=== PATIENT | female | born 1945 | race Caucasian/White ===

== ENCOUNTER 2022-05-04 08:13 | Outpatient (CLI) | payer MEDICARE, BC ==
[2022-05-04] MEDS ORDERED: Iopamidol 370 76% 150 ML VIAL FS ONE (13:26)
== END 2022-05-04 08:14 | disposition home or self-care (01) ==
LOC: CSHCT 08:13
PROVIDERS: ATTEND Thoracic Surgery (Cardiothoracic Vascular Surgery)
DX: G45.9 Transient cerebral ischemic attack, unspecified (principal); I73.9 Peripheral vascular disease, unspecified; I77.1 Stricture of artery
CPT/HCPCS: 75635; 82565